=== PATIENT | male | born 1970 | race African-American/Black ===

== ENCOUNTER 2017-08-29 10:59 | Emergency (ER) | payer OTHER ==
[~2017-08-29] VITALS: Ht 185.4 cm; Wt 93.7 kg
[~2017-08-29 10:59] MED LIST: BEN25 PO; HYDR25TA6 PO; PRED20TA PO
[2017-08-29 11:01] VITALS: Ht 185.4 cm; Wt 93.7 kg
[2017-08-29] MEDS ORDERED: FLUT9.9S NASAL (11:56)
[2017-08-29] MEDS ORDERED: IBUP-1542 PO (11:56)
[2017-08-29] MEDS ORDERED: VALA10004 PO (11:56)
[2017-08-29 12:29] VITALS: BP 184/100
--- NOTE | 2017-08-29 14:29 | ERD ---
ER Documentation Chief Complaint Chief Complaint COUGH,RUNNY NOSE, FEVER HPI Patient is a 47-year-old male with hypertension who presents with flulike symptoms. He said this started on Saturday. He has runny nose, dry eyes, and sore throat. He said that his stomach feels funny and he had a green bowel movement. He has had no fevers. He did not get his flu shot this year. He also is complaining of a cold sore on the left upper lip. Upon review of old medical records this is the patient's seventh visit to the ER since 2008. His primary doctor is Dr. Wallace. ROS All systems reviewed and are negative except as per history of present illness. Medications Home Meds Active Scripts Fluticasone Propionate (Flonase Allergy Relief) 9.9 Ml [place].susp, 1 SPRAY NASAL BID, #1 BOTTLE TO EACH NOSTRIL Prov:BHARGAV COHEN MD 08/29/17 Ibuprofen* (Motrin*) 600 Mg Tab, 600 MG PO Q6H Y for PAIN AND OR ELEVATED TEMP, #30 TAB Prov:BHARGAV COHEN MD 08/29/17 Valacyclovir HCl (Valtrex) 1,000 Mg Tablet, 2000 MG PO ONCE for 1 Day, #2 TAB Prov:BHARGAV COHEN MD 08/29/17 Diphenhydramine Hcl* (Benadryl*) 25 Mg Cap, 25 MG PO Q6, #30 CAP Prov:MAYELIN AYALA 06/22/15 Prednisone* (Prednisone*) 20 Mg Tab, 40 MG PO DAILY for 4 Days, TAB Prov:MAYELIN AYALA 06/22/15 Reported Medications Hydrochlorothiazide* (Hydrochlorothiazide*) 25 Mg Tab, 25 MG PO DAILY, TAB 08/23/14 Allergies Allergies: Coded Allergies: No Known Allergy (Unverified , 08/23/14) PMhx/Soc History of Surgery: No Anesthesia Reaction: No Hx Neurological Disorder: No Hx Respiratory Disorders: No Hx Cardiac Disorders: Yes (HTN) Hx Psychiatric Problems: No Hx Miscellaneous Medical Probl: No Hx Alcohol Use: No Hx Substance Use: No Hx Tobacco Use: Yes Smoking Status: Current some day smoker FmHx Family History: diabetes Physical Exam Vitals Vital Signs Date Time Temp Pulse Resp B/P Pulse Ox O2 Delivery O2 Flow Rate FiO2 08/29/17 12:29 184/100 12/21/17 11:01 97.5 61 18 168/81 100 Physical Exam Const: No acute distress Head: Atraumatic Eyes: Normal Conjunctiva ENT: Normal External Ears, Nose and Mouth. Neck: Full range of motion..~ No meningismus. Resp: Clear to auscultation bilaterally Cardio: Regular rate and rhythm, no murmurs Abd: Soft, non tender, non distended. Normal bowel sounds Skin: Herpes simplex to the left upper lip Back: No midline or flank tenderness Ext: No cyanosis, or edema Neur: Awake and alert Psych: Normal Mood and Affect Procedures/MDM Smoking Cessation Therapy: Pt. was lectured for greater than 3 minutes on the health risks of continued smoking and the benefits of cessation. Patient is a 47-year-old male who presents with what appears to be a viral syndrome. I doubt true fluid at this time and this is most likely another type of viral syndrome. The patient will be discharged with a prescription for ibuprofen, Flonase, and Valtrex. The patient can return for any worsening symptoms. I believe outpatient management is appropriate. I doubt serious bacterial infection. Departure Diagnosis: Primary Impression: URI (upper respiratory infection) URI type: unspecified viral URI Qualified Code: J06.9 - Viral upper respiratory tract infection Additional Impression: Cold sore Condition: Fair Patient Instructions: Preventing Common Respiratory Infections Referrals: Dr. Wallace Additional Instructions: Call your primary care doctor TOMORROW for an appointment during the next 1-2 days.See the doctor sooner or return here if your condition worsens before your appointment time. BHARGAV COHEN MD Aug 29, 2017 14:29
== END 2017-08-29 12:39 | disposition home or self-care (01) ==
LOC: FTE 10:59
DX: J06.9 Acute upper respiratory infection, unspecified (principal); B00.1 Herpesviral vesicular dermatitis; I10 Essential (primary) hypertension; F17.210 Nicotine dependence, cigarettes, uncomplicated
CPT/HCPCS: 99283

== ENCOUNTER 2018-05-06 20:34 | Emergency (ER) | END 2018-05-06 23:23 | disposition home or self-care (01) ==